=== PATIENT | male | born 1970 | race Caucasian/White ===

== ENCOUNTER 2019-02-20 22:47 | Emergency (ER) | payer SELFPAY ==
[~2019-02-20] VITALS: Ht 167.6 cm; Wt 108.9 kg
[2019-02-20] MEDS ORDERED: CYCLOBENZAPRINE HCL 10 MG TABLET ONE (23:42)
[2019-02-20] MEDS ORDERED: KETOROLAC TROMETHAMINE 60 MG INJ IM ONE ×2 (23:42→23:45)
[2019-02-20] MEDS ORDERED: CYCLOBENZAPRINE HCL 10 MG TABLET PO ONE (23:45)
--- NOTE | 2019-02-20 23:45 | NUR ---
[employer] non-emergency line contacted. Patient stated that [employer] took his ID but was unable to get his ID back due to being transported via [facility] to ER. Spoke to ride operator #[id number] She stated [employer] officers are en route to deliver DL
--- NOTE | 2019-02-20 23:59 | NUR ---
[employer] officers here to drop of DL and get a statement. Officer Carmenza Unit#[id number] was in the department.
[2019-02-21] MEDS ORDERED: TDAP DIPH,PERTUSS,TET VAC/PF 0.5 ML DISP.SYRIN IM ONE ×2 (00:30→00:42)
[2019-02-21] MEDS ORDERED: HYDROCODONE/APAP 5-325MG TABLET ONE (00:38)
[2019-02-21] MEDS ORDERED: HYDROCODONE/APAP 5-325MG TABLET PO ONE (00:45)
--- NOTE | 2019-02-21 00:50 | NUR ---
Patient discharged to home in stable conditon. Written and verbal after care instructions given. Patient verbalizes understanding of instructions. Patient ambulated with stable gait using crutches.
[2019-02-21 01:44] VITALS: BP 139/74
== END 2019-02-21 00:50 | disposition home or self-care (01) ==
LOC: ER 22:47
DX: S80.12XA Contusion of left lower leg, initial encounter (principal); S13.4XXA Sprain of ligaments of cervical spine, initial encounter; S33.5XXA Sprain of ligaments of lumbar spine, initial encounter; M79.632 Pain in left forearm; V49.49XA Driver injured in collision with other motor vehicles in traffic accident, initial encounter; Y93.89 Activity, other specified; Y92.89 Other specified places as the place of occurrence of the external cause; Y99.8 Other external cause status
CPT/HCPCS: 73090; 73590; 90471; 90715; 96372; 99283; J1885; A4663